=== PATIENT | female | born 1995 | race Caucasian/White ===

== ENCOUNTER → 2020-09-27 | Outpatient (CLI) | payer OTHER ==
[~2020-09-27] MED LIST: ACHD5005 PO; AMIT25TA9 PO; AZIT250T PO; CIPR500T5 PO; METR-145 PO; ONDA4TAB11 PO
--- NOTE | 2020-09-27 13:05 | Diagnostic Imaging Report ---
INDICATION: Pain in the lateral aspect of the left breast and medial aspect of the right breast. COMPARISON: No prior mammograms are available for comparison. TECHNIQUE: 2D and 3D bilateral diagnostic mammography was performed with CAD. FINDINGS: Both breasts are heterogeneously dense, limiting the sensitivity of mammography. No mass or malignant appearing microcalcifications are seen. The axillae are unremarkable. IMPRESSION: No mammographic features suspicious for malignancy are identified. Directed sonographic interrogation of the areas of pain in the left and right breast is recommended and will be performed today. ACR BI-RADS Category 0: Incomplete. (Needs additional imaging evaluation). Result letter will be mailed to the patient. Note: At least 10% of breast cancer is not imaged by mammography. Dictated by: Dictated on workstation # [id number]
--- NOTE | 2020-09-27 17:38 | Diagnostic Imaging Report ---
INDICATION: Pain in the lateral aspect of the left breast and medial aspect of the right breast. Patient also complains of pain in the upper outer aspect of the right breast. CORRELATION is made with a diagnostic mammogram done earlier same day. Sonographic interrogations of the areas of pain were obtained bilaterally. This corresponds to the 1-3 o'clock and 9-12 o'clock locations of the right breast as well as the 12-6 o'clock location of the left breast. No sonographic abnormality is seen. No solid or cystic mass is detected. IMPRESSION: BI-RADS Category 1 No sonographic abnormality is detected. ACR BI-RADS Category 1: Negative. Result letter will be mailed to the patient. Note: At least 10% of breast cancer is not imaged by mammography. Dictated by: Dictated on workstation # [id number]
== END ==
LOC: RAD 12:45
PROVIDERS: ATTEND Internal Medicine
DX: N64.4 Mastodynia (principal)
CPT/HCPCS: 76642; 77066; G0279; 77062